=== PATIENT | female | born 1995 | race African-American/Black ===

== ENCOUNTER 2017-12-23 16:18 | Emergency (ER) | payer SELFPAY ==
[2017-12-23 16:28] VITALS: BP 111/64
--- NOTE | 2017-12-23 17:10 | ER Document Report ---
ED General - General Mode of Arrival: Ambulatory Information source: Patient TRAVEL OUTSIDE OF THE [place] IN LAST 30 DAYS: No - General Chief Complaint: Numbness of Face Stated Complaint: FACIAL/TONGUE NUMBNESS Time Seen by Provider: 12/23/17 17:02 Notes: Patient is a 22 year old female approximately 20 weeks presenting to the emergency department complaining of a headache and left sided facial numbness onset 3 days ago. Patient states she woke up 3 days ago with neck pain that progressed to a global headache and she noticed the left side of her face was numb. She also noticed she could not feel when she blinked her left eye. She also mentions her tongue feeling numb and noticing a lump on the left side of her upper gumline onset yesterday that is currently resolved except for a little amount of pain in that area. Patient is G1. Patient denies any problems during her so far. ( JJ RUSH) - Related Data Allergies/Adverse Reactions: No Known Allergies Allergy (Unverified 12/23/17 16:21) Past Medical History - General Information source: Patient - Social History Smoking Status: Never Smoker Chew tobacco use (# tins/day): No Frequency of alcohol use: None Drug Abuse: None Family History: Reviewed & Not Pertinent Patient has suicidal ideation: No Patient has homicidal ideation: No Review of Systems - Review of Systems Constitutional: No symptoms reported EENT: See HPI Cardiovascular: No symptoms reported Respiratory: No symptoms reported Gastrointestinal: No symptoms reported Genitourinary: No symptoms reported Female Genitourinary: No symptoms reported Musculoskeletal: See HPI Skin: No symptoms reported Hematologic/Lymphatic: No symptoms reported Neurological/Psychological: See HPI, Headaches, Numbness -: Yes All other systems reviewed and negative Physical Exam - Vital signs Vitals: Temp Pulse Resp BP Pulse Ox 98.7 F 94 12 111/64 97 12/23/17 16:27 12/23/17 16:27 12/23/17 16:27 12/23/17 16:27 12/23/17 16:27 - Notes Notes: GENERAL: Alert, interacts well. No acute distress. HEAD: Normocephalic, atraumatic. EYES: Pupils equal, round, and reactive to light. Extraocular movements intact. Slight left lid lag with closing eyelid. Left cheek slightly weaker. Slight weakness in forehead muscles when grimacing. TMs intact, nares patent, no nasal septal hematoma. ENT: Oral mucosa moist, tongue midline. NECK: Full range of motion. Supple. Trachea midline. LUNGS: No respiratory distress. ABDOMEN: Gravid. EXTREMITIES: Moves all 4 extremities spontaneously. NEUROLOGICAL: Alert and oriented x3. Normal speech. PSYCH: Normal affect, normal mood. SKIN: Warm, dry, normal turgor. No rashes or lesions noted. 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 Counseled on eye care. Counseled on why antivirals are not helpful with a case this mild but I think she should start steroids. Discharged home. (BERHANE BENTON) - Vital Signs Vital signs: Temp Pulse Resp BP Pulse Ox 98.7 F 94 12 111/64 97 12/23/17 16:27 12/23/17 16:27 12/23/17 16:27 12/23/17 16:27 12/23/17 16:27 Discharge - Discharge Clinical Impression: Myles's palsy affecting in second trimester Condition: Stable Disposition: HOME, SELF-CARE Instructions: Myles's Palsy ([facility]), Steroid Medication Additional Instructions: Looking at the latest research antivirals will not help. Please take the steroids as directed until they are gone. If you develop a blistering rash on your face please return to the emergency department. Prescriptions: Prednisone 10 mg PO ASDIR PRN #51 tablet PRN Reason: Referrals: [facility] [Provider Group] - Follow up as needed Scribe Attestation: 12/23/17 21:00 I personally performed the services described in the documentation, reviewed and edited the documentation which was dictated to the scribe in my presence, and it accurately records my words and actions. (BERHANE BENTON) Scribe Documentation - Scribe Written by Main:: Jj Rush, Main, 12/23/2017 17:44 acting as scribe for :: Dmitry
== END 2017-12-23 17:20 | disposition home or self-care (01) ==
LOC: ER 16:18
DX: O99.355 Diseases of the nervous system complicating the puerperium (principal); G51.0 Bell's palsy; O26.892 Other specified pregnancy related conditions, second trimester; R20.0 Anesthesia of skin; R51 Headache; Z3A.20 20 weeks gestation of pregnancy
CPT/HCPCS: 99283

== ENCOUNTER 2018-03-13 21:54 | Inpatient (IN) | payer MEDICAID ==
[2018-03-13] MEDS ORDERED: LIDOCAINE 1% INJ-PF (10 MG/ML) 30 ML SDV ONE (22:38)
[2018-03-13] MEDS ORDERED: MISOPROSTOL 0.2 MG TABLET ONE (22:38)
[2018-03-13] MEDS ORDERED: RINGERS SOLUTION,LACTATED 1,000 ML IV PRN (22:38)
[2018-03-13] MEDS ORDERED: OXYTOCIN/NORMAL SALINE 0 UNIT/0 ML RTUINJ ONE (22:38)
[2018-03-13 22:42] LABS: APPEARANCE,URINE CLOUDY; BILIRUBIN,URINE NEGATIVE (NEGATIVE); COLOR,URINE YELLOW; GLUCOSE, URINE NEGATIVE (NEGATIVE); KETONES,URINE 20 mg/dL (NEGATIVE); LEUKOCYTE ESTERASE,URINE NEGATIVE (NEGATIVE); NITRITE,URINE NEGATIVE (NEGATIVE); PROTEIN,URINE NEGATIVE (NEGATIVE); URINE SPECIFIC GRAVITY 1.015
[2018-03-13] MEDS ORDERED: PENICILLIN G-K 5 MILLION UNIT VIAL IV ONE (22:43)
[2018-03-13] MEDS ORDERED: PENICILLIN G-K 5 MILLION UNIT VIAL ONE (22:52)
[2018-03-13 22:53] LABS: URINE AMPHETAMINES SCREEN NEGATIVE; URINE BARBITURATES SCREEN NEGATIVE; URINE BENZODIAZEPINES SCREEN NEGATIVE; URINE COCAINE SCREEN NEGATIVE; URINE MARIJUANA (THC) SCREEN NEGATIVE; URINE METHADONE SCREEN NEGATIVE; URINE PHENCYCLIDINE SCREEN NEGATIVE
[2018-03-13 23:05] LABS: ABSOLUTE LYMPHOCYTES (AUTO) 2.2 10^3/uL (0.5-4.7); ABSOLUTE MONOCYTES (AUTO) 1.5 10^3/uL (0.1-1.4); ABSOLUTE NEUT (AUTO) 14.2 10^3/uL (1.7-8.2); BASOPHILS % (AUTO) 0.1 % (0-2); EOSINOPHILS % (AUTO) 0.1 % (0-6); HEMATOCRIT 29.9 % (36.0-47.0); HEMOGLOBIN 8.8 g/dL (12.0-15.5); LYMPHOCYTES % (AUTO) 12.1 % (13-45); MEAN CORPUSCULAR HEMOGLOBIN 18.1 pg (27.0-33.4); MEAN CORPUSCULAR HGB CONC 29.6 g/dL (32.0-36.0); MONOCYTES % (AUTO) 8.5 % (3-13); PLATELET COUNT 251 10^3/uL (150-450); RED BLOOD COUNT 4.88 10^6/uL (3.72-5.28); SEGMENTED NEUTROPHILS % (AUTO) 79.2 % (42-78); TOTAL CELLS COUNTED % (AUTO) 100 %; WHITE BLOOD COUNT 17.9 10^3/uL (4.0-10.5)
[2018-03-13 23:08] LABS: MEAN CORPUSCULAR VOLUME 61 fl (80-97)
[2018-03-13 23:29] LABS: ANISOCYTOSIS 3+; HYPOCHROMASIA 2+; PLATELET COMMENT ADEQUATE; POLYCHROMASIA 2+
[2018-03-13] MEDS ORDERED: EPHEDRINE SULFATE INJ 50 MG/1 ML AMPULE ONE (23:41)
[2018-03-13] MEDS ORDERED: BUPIVACAINE HCL 0.5 % INJ/PF 30 ML SDV ONE (23:42)
[2018-03-13] MEDS ORDERED: FENTANYL/BUPIVACAINE/NS/PF 300 MCG/150 ML RTUINJ EPI ONE (23:42)
[2018-03-14] MEDS ORDERED: PENICILLIN G-K 5 MILLION UNIT VIAL ONE (05:45)
[2018-03-14] MEDS: PENICILLIN G-K 5 MILLION UNIT VIAL IV SCH ×3 (05:50→23:17)
--- NOTE | 2018-03-14 06:13 | Admission Physical ---
Datetime Report Generated by CPN: 03/14/2018 06:13 CURRENT ADMISSION Chief Complaint: Uterine Contractions Indication for Induction: Not Applicable Admit Impression : , Intrauterine Admit Plan: Admit to Unit; Initiate Labor Protocol Admit Plan- Other: breech presentation ALLERGIES Medication Allergies: No Medication Allergies: No Known Allergies (03/14/2018) Latex: No Latex Allergies OBSTETRICAL HISTORY EDC: 04/24/2018 00:00 : 1 Para: 0 Term: 0 : 0 SAB: 0 IAB: 0 Ectopic: 0 Livin Cesareans: 0 VBACs: 0 Multiple Births: 0 Gestational Diabetes: No Rh Sensitization: No Incompetent Cervix: No ANTHONY: No Infertility: No ART Treatment: No Uterine Anomaly: No IUGR: No Hx Previous C/S: No Macrosomia: No Hx Loss/Stillborn: No PIH: No Hx : No Placenta Previa/Abruption: No Depression/PP Depression: No PTL/PROM: No Post Hemorrhage: No Current Procedures: Ultrasound; NST Obstetrical History Comments: G1- current, abnormal quad screen (Annotations: Data stored by [facility] on behalf of user) SEE RECORDS Alcohol: No Marijuana : No Cocaine: No Other Illicit Drugs: No Cigarettes: Never Smoker. [id number] MEDICAL HISTORY Diabetes: No Blood Transfusion: No Pulmonary Disease (Asthma, TB): No Breast Disease: No Hypertension: No Industrial Rehabilitation Consultant Surgery: No Heart Disease: No Hosp/Surgery: No Autoimmune Disorder: No Anesthetic Complications: No Kidney Disease: No Abnormal Pap Smear: No Neuro/Epilepsy: No Psychiatric Disorders: No Other Medical Diseases: No Hepatitis/Liver Disease: No Significant Family History: No Varicosities/Phlebitis: No Trauma/Violence : No Thyroid Dysfunction: No INFECTIOUS HISTORY Gonorrhea: No Genital Herpes: No Chlamydia: No Tuberculosis: No Syphilis: No Hepatitis: No HIV/AIDS Exposure: No Rash or Viral Illness: No HPV: No PHYSICAL EXAM General: Normal HEENT: Normal Neurologic: Normal Thyroid: Normal Heart: Normal Lungs: Normal Breast: Normal Back: Normal Abdomen: Normal Genitourinary Exam: Normal Extremities: Normal DTRs: Normal Pelvic Type: Adequate Vital Signs: Reviewed VAGINAL EXAM Dilatation: 4 Effacement: 100 Station: -1 MEMBRANES Pooling: Negative Membranes: Intact FETUS A EGA: 34.1 Monitoring: External US FHR- Baseline: 140 Variability: Moderate 6-25bpm Accelerations: 15X15 Decelerations: None FHR Category: Category I Estimated Weight (gm): 2500 Presentation: Breech Admit Comment: will continue to monitor for advancing dilation or ROM. If labor proceeds or ROM occurs then will proceed to OR for c/section. PLANS FOR LABOR AND DELIVERY Labor and Delivery: None Pain Management: Epidural Feeding Preference: Breast Benefit of Breast Feed Discussed: Yes Circumcision: Yes INFORMED CONSENT Signature: with User ID: [email or web address]
[2018-03-14] MEDS ORDERED: CITRIC ACID/SODIUM CITRATE ORAL SOLN 15 ML UDCUP ONE (06:28)
[2018-03-14] MEDS ORDERED: CEFAZOLIN 1 GM/D5W RTU 1 GM/50 ML RTUPB IV ONE (06:28)
[2018-03-14] MEDS ORDERED: LIDOCAINE 2% INJ-PF (20 MG/ML) 10 ML AMPUL ONE (06:33)
[2018-03-14] MEDS ORDERED: OXYTOCIN 10 UNIT/ML VIAL ONE (06:54)
[2018-03-14] MEDS ORDERED: MIDAZOLAM 2 MG/2 ML INJ ONE (06:54)
[2018-03-14] MEDS ORDERED: PROPOFOL INJ 200 MG/20 ML VIAL IV ONE (06:54)
[2018-03-14] MEDS ORDERED: EPHEDRINE SULFATE INJ 50 MG/1 ML AMPULE ONE (06:54)
[2018-03-14] MEDS ORDERED: FENTANYL CITRATE INJ/PF 100 MCG/2 ML AMPUL ONE ×2 (06:54→08:36)
[2018-03-14] MEDS ORDERED: FENTANYL CITRATE INJ/PF 100 MCG/2 ML AMPUL IV PRN ×3 (07:36)
[2018-03-14] MEDS ORDERED: MEPERIDINE HCL/PF INJ 25 MG/1 ML DISP.SYRIN IV PRN (07:36)
[2018-03-14] MEDS ORDERED: PROMETHAZINE HCL INJ 25 MG/1 ML VIAL IV PRN ×2 (07:36→07:58)
[2018-03-14] MEDS ORDERED: ONDANSETRON HCL INJ/PF 4 MG/2 ML SDV IV PRN (07:36)
[2018-03-14] MEDS ORDERED: DIPHENHYDRAMINE HCL 50 MG/ML VIAL IV PRN (07:36)
[2018-03-14] MEDS ORDERED: MORPHINE SULFATE 10 MG/ML INJ IV PRN (07:58)
[2018-03-14] MEDS ORDERED: OXYCODONE-ACETAMINOPHEN 5-325 MG TABLET PO PRN (07:58)
[2018-03-14] MEDS ORDERED: OXYTOCIN/NORMAL SALINE 20 UNIT/1,000 ML RTUINJ IV PRN (07:58)
[2018-03-14] MEDS ORDERED: ACETAMINOPHEN 325 MG TABLET PO PRN (07:58)
[2018-03-14] MEDS ORDERED: DIPH/PERTUSS(ACELL)/TETANUS VAC/PF 0.5 ML SYR (>=10YO) IM PRN (07:58)
[2018-03-14] MEDS ORDERED: MEASLES,MUMPS&RUBELLA VACC/PF 0.5 ML VIAL SUBCUT PRN (07:58)
[2018-03-14] MEDS ORDERED: ACETAMINOPHEN 1,000 MG/100 ML RTUPB IV PRN (07:58)
[2018-03-14] MEDS ORDERED: AMPICILLIN SOD/SULBACTAM 3 GM VIAL IV SCH ×2 (08:00→14:00)
[2018-03-14] MEDS ORDERED: ACETAMINOPHEN 1,000 MG/100 ML RTUPB IV ONE (08:14)
--- NOTE | 2018-03-14 08:24 | PDOC DELIVERY SUMMARY ---
Delivery Summary - Maternal Hx : I Hx Para: 0 Risk Factors: Labor <37 wks, Other - breech Ruptured Membranes: AROM - Delivery Presentation: Breech - Medications Type of Anesthesia:: Epidural - Delivery Personnel MD: ALMAZ AGARWAL
[2018-03-14] MEDS ORDERED: OXYTOCIN/NORMAL SALINE 20 UNIT/1,000 ML RTUINJ ONE (08:41)
[2018-03-14] MEDS ORDERED: AMPICILLIN SOD/SULBACTAM 3 GM VIAL ONE (08:58)
[2018-03-14] MEDS ORDERED: MORPHINE SULFATE 10 MG/ML INJ ONE (09:10)
[2018-03-14] MEDS: MORPHINE SULFATE 10 MG/ML INJ IV PRN ×2 (09:12→09:39)
--- NOTE | 2018-03-14 09:17 | OPERATIVE REPORT E ---
Operative Report NAME: NANO LONG : 1995 AGE: 22Y DATE OF SURGERY: 03/14/2018 ROOM: LR200 PREOPERATIVE DIAGNOSIS: INTRAUTERINE AT 34 WEEKS AND 1 DAY, LABOR, BREECH PRESENTATION. POSTOPERATIVE DIAGNOSIS: INTRAUTERINE AT 34 WEEKS AND 1 DAY, LABOR, BREECH PRESENTATION. OPERATION: Low transverse hysterotomy section. SURGEON: ALMAZ AGARWAL M.D. ANESTHESIA: Dr. Khoury with epidural. FINDINGS: Male in double footling breech presentation, Apgars 8-9. ESTIMATED BLOOD LOSS: 650 mL SPECIMENS REMOVED: Placenta. PROCEDURE: The patient was taken to the operating room, prepared and draped in normal sterile fashion in the supine position with a leftward tilt. A transverse skin incision was made with a scalpel and carried through to the underlying layer of fascia with the same scalpel. The fascia was incised in the midline and extended laterally with Mayos. The fascia was then dissected from the rectus muscle sharply with a Bovie, and the rectus muscle was divided with good visualization of the bladder and the uterus. The bladder blade was inserted and the hysterotomy was nicked with a scalpel and extended laterally with surgeon finger fracture. The 's legs were then grasped and the infant was delivered using the normal procedures. The nose and mouth were suctioned with a suction bulb. The cord was clamped and cut and the was handed off to waiting sales contractor. The cord blood was collected. The placenta was removed manually. The uterus was exteriorized and cleared of clots and debris. The hysterotomy was closed with 0 Monocryl in a running locked fashion. A 2nd layer of the same suture was used to imbricate to ensure hemostasis. The uterus was returned to the abdomen. The peritoneal cavity was cleared of clots and debris. The rectus muscle and peritoneum were reapproximated with mattress stitch of 2-0 Chromic. The fascia was closed with 0 Vicryl. The subcutaneous layer was closed with interrupted plain catgut, and the skin was closed with 4-0 Vicryl. The patient tolerated the procedure well. Sponge, lap, and needle counts were correct x2, and the patient was taken to recovery in stable condition. DICTATING PHYSICIAN: ALMAZ AGARWAL M.D. [id number] PHY#: [id number] ID: [id number] JOB#: [id number] ACCT: [id number] cc:ALMAZ AGARWAL M.D. >
[2018-03-14 09:51] LABS: EPITHELIALS (WET MOUNT) 3+ EPITHELIALS SEEN; RBCS (WET MOUNT) 4+ RBCS SEEN; T.VAGINALIS (WET MOUNT) NO TRICHOMONAS SEEN; WBCS (WET MOUNT) 2+ WBCS SEEN; YEAST (WET MOUNT) NO YEAST SEEN
[2018-03-14] MEDS: PRENATAL VITAMIN W DHA CAPSULE PO SCH (10:26)
[2018-03-14] MEDS: DOCUSATE SODIUM 100 MG CAPSULE PO SCH ×2 (10:26→17:02)
[2018-03-14] MEDS: OXYCODONE-ACETAMINOPHEN 5-325 MG TABLET PO PRN ×2 (11:08→17:30)
[2018-03-14 11:15] LABS: CHLAM PCR NOT DETECTED (NOT DETECT); GON PCR NOT DETECTED (NOT DETECT)
[2018-03-14] MEDS: IBUPROFEN 800 MG TABLET PO SCH ×4 (12:55→23:04)
[2018-03-14] MEDS: KETOROLAC TROMETHAMINE INJ/PF 30 MG/1 ML SDV IV SCH ×2 (13:58→21:30)
[2018-03-14] MEDS: AMPICILLIN SODIUM/SULBACTAM NA 3 GM in NORMAL SALINE 100 ML IV SCH ×2 (14:51→22:59)
[2018-03-14 15:05] LABS: PATH REVIEW PATHOLOGIST REVIEWED
[2018-03-14] MEDS: SIMETHICONE 80 MG TAB.CHEW PO PRN (17:30)
[2018-03-15] MEDS: OXYCODONE-ACETAMINOPHEN 5-325 MG TABLET PO PRN ×3 (04:33→22:39)
[2018-03-15] MEDS: IBUPROFEN 800 MG TABLET PO SCH ×3 (05:29→17:40)
[2018-03-15] MEDS: AMPICILLIN SODIUM/SULBACTAM NA 3 GM in NORMAL SALINE 100 ML IV SCH (06:01)
[2018-03-15] MEDS: KETOROLAC TROMETHAMINE INJ/PF 30 MG/1 ML SDV IV SCH ×3 (06:01→21:03)
[2018-03-15 06:45] LABS: HEMATOCRIT 29.4 % (36.0-47.0); HEMOGLOBIN 8.6 g/dL (12.0-15.5); MEAN CORPUSCULAR HEMOGLOBIN 18.1 pg (27.0-33.4); MEAN CORPUSCULAR HGB CONC 29.4 g/dL (32.0-36.0); MEAN CORPUSCULAR VOLUME 62 fl (80-97); PLATELET COUNT 222 10^3/uL (150-450); RED BLOOD COUNT 4.77 10^6/uL (3.72-5.28); RED CELL DISTRIBUTION WIDTH 20.7 % (11.5-14.0); WHITE BLOOD COUNT 21.3 10^3/uL (4.0-10.5)
[2018-03-15 08:38] LABS: HEPATITIS C VIRUS AB <0.1 s/co ratio (0.0-0.9)
--- NOTE | 2018-03-15 08:57 | PDOC PROGRESS REPORT ---
Subjective-OB Progress Note for:: 03/15/18 Subjective: Pt resting in bed. She reports light bleeding, reg diet and voiding without difficulty. Pain is controlled and she is ambulatory. Baby in NICU. Physical Exam (OB) Vital Signs: Temp Pulse Resp BP Pulse Ox 98.0 F 80 16 105/65 95 03/15/18 08:06 03/15/18 08:06 03/15/18 08:06 03/15/18 08:06 03/15/18 08:06 Intake & Output 03/14/18 03/15/18 03/16/18 06:59 06:59 06:59 Intake Total 2950 Output Total 1900 Balance 1050 - Dressing Removed: No - Opsite CD&I Incision: Dressing, Well Approximated - Abdomen Description: Tender, Soft, Round Hernia Present: No Fundal Description: Firm, Midline Fundal Height: u/u - u/2 Objective-Diagnostic Laboratory: 03/15/18 06:18 03/15/18 06:18 WBC 21.3 H RBC 4.77 Hgb 8.6 L Hct 29.4 L MCV 62 L MCH 18.1 L MCHC 29.4 L RDW 20.7 H Plt Count 222 Assessment and Plan(PN) - Assessment and Plan (1) Iron deficiency anemia during Is this a current diagnosis for this admission?: Yes (2) Breech presentation delivered Is this a current diagnosis for this admission?: Yes (3) labor in third trimester with delivery Qualifiers: Fetus number: single or unspecified fetus Qualified Code(s): O60.14X0 - labor third trimester with delivery third trimester, not applicable or unspecified Is this a current diagnosis for this admission?: Yes (4) Status post primary low transverse section Is this a current diagnosis for this admission?: Yes Plan:: repeat CBC in AM for elevated WBC - Time Spent with Patient Time with patient: Less than 15 minutes Medications reviewed and adjusted accordingly: Yes - Disposition Anticipated Discharge: Home Within: within 48 hours
[2018-03-15] MEDS: DOCUSATE SODIUM 100 MG CAPSULE PO SCH ×2 (10:44→17:41)
[2018-03-15] MEDS: PRENATAL VITAMIN W DHA CAPSULE PO SCH (10:44)
[2018-03-16] MEDS: IBUPROFEN 800 MG TABLET PO SCH ×5 (01:33→23:44)
[2018-03-16] MEDS: KETOROLAC TROMETHAMINE INJ/PF 30 MG/1 ML SDV IV SCH (07:19)
[2018-03-16 08:04] LABS: MEAN CORPUSCULAR HEMOGLOBIN 17.9 pg (27.0-33.4); MEAN CORPUSCULAR HGB CONC 29.2 g/dL (32.0-36.0); MEAN CORPUSCULAR VOLUME 61 fl (80-97); PLATELET COUNT 267 10^3/uL (150-450); RED BLOOD COUNT 4.41 10^6/uL (3.72-5.28); RED CELL DISTRIBUTION WIDTH 20.4 % (11.5-14.0); WHITE BLOOD COUNT 12.4 10^3/uL (4.0-10.5)
[2018-03-16 08:13] LABS: HEMOGLOBIN 7.9 g/dL (12.0-15.5)
--- NOTE | 2018-03-16 08:45 | PDOC PROGRESS REPORT ---
Subjective-OB Progress Note for:: 03/16/18 Subjective: Doing well, no c/o, hx of low iron and iron infusions, does not want blood, feels dizzy when she takes pain medication Physical Exam (OB) Vital Signs: Temp Pulse Resp BP Pulse Ox 98.9 F 102 H 18 112/78 98 03/16/18 04:00 03/16/18 04:00 03/16/18 04:00 03/16/18 04:00 03/16/18 04:00 Intake & Output 03/15/18 03/16/18 03/17/18 06:59 06:59 06:59 Intake Total 2950 700 Output Total 1900 Balance 1050 700 - PIH/Pre-Eclampsia Clonus: Negative Headache: Absent Epigastric Pain: No Visual Changes: No - Dressing Removed: No - opsite noted to lower abdomen Incision: Dressing Closure Type: Sutures - Lochia Lochia Amount: Small 10-25 ml Lochia Color: Rubra/Red - Abdomen Description: Tender, Soft, Round Hernia Present: No Fundal Description: Firm, Midline Fundal Height: u/u - u/2 Objective-Diagnostic Laboratory: 03/16/18 06:17 03/16/18 06:17 WBC 12.4 H RBC 4.41 Hgb 7.9 L Hct 27.0 L MCV 61 L MCH 17.9 L MCHC 29.2 L RDW 20.4 H Plt Count 267 Seg Neutrophils % Not Reportable Lymphocytes % Not Reportable Monocytes % Not Reportable Eosinophils % Not Reportable Basophils % Not Reportable Absolute Neutrophils Not Reportable Absolute Lymphocytes Not Reportable Absolute Monocytes Not Reportable Absolute Eosinophils Not Reportable Absolute Basophils Not Reportable Assessment and Plan(PN) - Assessment and Plan (1) Iron deficiency anemia during Is this a current diagnosis for this admission?: Yes (2) Status post primary low transverse section Is this a current diagnosis for this admission?: Yes (3) Breech presentation delivered Is this a current diagnosis for this admission?: Yes (4) labor in third trimester with delivery Qualifiers: Fetus number: single or unspecified fetus Qualified Code(s): O60.14X0 - labor third trimester with delivery third trimester, not applicable or unspecified Is this a current diagnosis for this admission?: Yes - Time Spent with Patient Time with patient: Less than 15 minutes Medications reviewed and adjusted accordingly: Yes - Disposition Anticipated Discharge: Home Within: within 24 hours
[2018-03-16 08:48] LABS: ABSOLUTE LYMPHOCYTES# (MANUAL) 1.4 10^3/uL (0.5-4.7); ABSOLUTE MONOCYTES # (MANUAL) 0.6 10^3/uL (0.1-1.4); ABSOLUTE NEUTROPHILS# (MANUAL) 10.4 10^3/uL (1.7-8.2); BASOPHILS % (MANUAL) 0 % (0-2); EOSINOPHILS % (MANUAL) 0 % (0-6); LYMPHOCYTES % (MANUAL) 7 % (13-45); MONOCYTES % (MANUAL) 5 % (3-13); SEGMENTED NEUTROPHILS % (MAN) 84 % (42-78); TOTAL CELLS COUNTED 100
[2018-03-16 08:51] LABS: ANISOCYTOSIS 3+; HYPOCHROMASIA 2+; OVALOCYTES SLIGHT; POIKILOCYTOSIS 2+; POLYCHROMASIA 2+; SCHISTOCYTES SLIGHT; TARGET CELLS 1+; TEAR DROP CELLS 2+; TOXIC VACUOLATION PRESENT
[2018-03-16 08:52] LABS: PLATELET COMMENT ADEQUATE
[2018-03-16 08:53] LABS: TOXIC GRANULATION SLIGHT
[2018-03-16] MEDS: PRENATAL VITAMIN W DHA CAPSULE PO SCH (09:06)
[2018-03-16] MEDS: OXYCODONE-ACETAMINOPHEN 5-325 MG TABLET PO PRN ×2 (09:06→20:00)
[2018-03-16] MEDS: DOCUSATE SODIUM 100 MG CAPSULE PO SCH ×2 (09:06→17:11)
--- NOTE | 2018-03-16 14:21 | Delivery Summary ---
Del Sum A-C Datetime Report Generated by CPN: 03/16/2018 14:21 DELIVERY PERSONNEL DELIVERY PERSONNEL: [id number] Delivery Doctor:: Steffi Yeager MD Delivery Doctor:: Steffi Yeager MD Anesthesiologist:: Ruddy Khoury MD Anesthesiologist:: Ruddy Khoury MD REGISTER OF WILLS:: Alexandria Vega CRNA REGISTER OF WILLS:: Alexandria Vega CRNA Labor and Delivery Nurse:: Laurita Phillip RN Form Tamper Operator:: Laurita Phillip RN Nursery Nurse:: Rosy Crowe RN Nursery Nurse:: Airam Cedeño RN Candlemaker/WEDGER MACHINE: Yanely Hinkle, ST Candlemaker/WEDGER MACHINE: Yanely Hinkle, ST Candlemaker/WEDGER MACHINE: Cate Santos CST Candlemaker/WEDGER MACHINE: Cate Santos CST Additional Personnel: : JESSICA Cabral MATERNAL INFORMATION Delivery Anesthesia: Epidural Medications After Delivery: Pitocin Drip 20 Units/1000ml NSS Maternal Complications: Other Complication Details: labor LABOR SUMMARY EDC: 04/24/2018 00:00 No. Babies in Womb: 1 Attempted: No Labor Anesthesia: Epidural LABOR INFORMATION Reason for Induction: Not Applicable Onset of Labor: 03/14/2018 00:26 Group B Beta Strep: 1 NO GROUP B STREPTOCOCCUS RECOVERED Group B Beta Strep: Unknown Antibiotics # of Doses: 2 Antibiotics Time of Last Dose: 0550 Name of Antibiotic Given: PCN STAGES OF LABOR Stage 3 hr: 0 Stage 3 min: 1 Total Time in Labor hr: 7 Total Time in Labor min: 1 VAGINAL DELIVERY Episiotomy: None Laceration #1: None Laceration Extension #1: N/A Sponge Count Correct: N/A CSECTION DELIVERY Primary Indication: Breech Presentation Secondary Indication: N/A CSection Urgency: Non-Scheduled CSection Incidence: Primary Labor: Labor Elective: Nonelective CSection Incision: Lower Uterine Transverse BABY A INFORMATION Infant Delivery Date/Time: 03/14/2018 07:26 Method of Delivery: Born in Route : No : N/A Forceps: N/A Vacuum Extraction: N/A Shoulder Dystocia : No PRESENTATION/POSITION BABY A Presentation: Unable to Assess Cephalic Presentation: N/A Breech Presentation: Single Footling PLACENTA INFORMATION BABY A Placenta Delivery Time : 03/14/2018 07:27 Placenta Method of Delivery: Manual Removal Placenta Status: Delivered SCORES BABY A Heart Rate 1 min: >100 bpm Resp Effort 1 min: Slow, Irregular Reflex Irritability 1 min: Grimace Muscle Tone 1 min: Active Motion Color 1 min: Blue/Pale Resuscitation Effort 1 min: Tactile Stimulation SCORE 1 MIN: 6 Heart Rate 5 min: >100 bpm Resp Effort 5 min: Slow, Irregular Reflex Irritability 5 min: Grimace Muscle Tone 5 min: Some Flexion of Extremities Color 5 min: Body [place], Extremities Blue Resuscitation Effort 5 min: Tactile Stimulation; Oxygen; PPV/NCPAP SCORE 5 MIN: 6 Heart Rate 10 min: >100 bpm Resp Effort 10 min: Slow, Irregular Reflex Irritability 10 min: Cough or Sneeze or Pulls Away Muscle Tone 10 min: Active Motion Color 10 min: Body [place], Extremities Blue Resuscitation Effort 10 min: Oxygen; PPV/NCPAP SCORE 10 MIN: 8 INFORMATION BABY A Gestational Age at Delivery: 34.1 Gestational Status: Late - 34- 36.6 Weeks Infant Outcome : Liveborn Infant Condition : Stable Sex: Male IDENTIFICATION BABY A Infant Verification Date/Time: 03/14/2018 07:33 ID Band Number: [id number] Mother's Name Verified: Yes Infant RN Verifying : J, RN and R.Davidson, RN WEIGHT/LENGTH BABY A Infant Birthweight (gm): 2193 Infant Weight (lb): 4 Infant Weight (oz): 13 Length (in): 17.75 Length (cm): 45.09 CORD INFORMATION BABY A No. Cord Vessels: 3 Nuchal Cord : Around Neck x2, Loose Cord Blood Taken: Yes-For Storage (Mom's Blood type +) Infant Suction: Mouth ASSESSMENT BABY A Skin to Skin: No
[2018-03-16] MEDS: SIMETHICONE 80 MG TAB.CHEW PO PRN (20:03)
[2018-03-17] MEDS: KETOROLAC TROMETHAMINE INJ/PF 30 MG/1 ML SDV IV SCH (00:08)
[2018-03-17] MEDS: IBUPROFEN 800 MG TABLET PO SCH ×2 (05:21→12:01)
[2018-03-17] MEDS: OXYCODONE-ACETAMINOPHEN 5-325 MG TABLET PO PRN (07:55)
[2018-03-17 08:48] VITALS: BP 111/69
[2018-03-17] MEDS: DOCUSATE SODIUM 100 MG CAPSULE PO SCH (10:07)
[2018-03-17] MEDS: PRENATAL VITAMIN W DHA CAPSULE PO SCH (10:07)
--- NOTE | 2018-03-17 10:25 | PDOC PROGRESS REPORT ---
Subjective-OB Progress Note for:: 03/17/18 Subjective: Ready for discharge. Physical Exam (OB) Vital Signs: Temp Pulse Resp BP Pulse Ox 97.6 F 66 15 111/69 97 03/17/18 08:00 03/17/18 08:00 03/17/18 08:00 03/17/18 08:00 03/17/18 08:00 Intake & Output 03/16/18 03/17/18 03/18/18 06:59 06:59 06:59 Intake Total 700 2675 Balance 700 2675 - PIH/Pre-Eclampsia Clonus: Negative Headache: Absent Epigastric Pain: No Visual Changes: No - Dressing Removed: No - opsite noted Incision: Dressing Closure Type: Sutures - Lochia Lochia Amount: Small 10-25 ml Lochia Color: Rubra/Red - Abdomen Description: Tender, Soft, Round Hernia Present: No Bowel Sounds: Normoactive Flatus Presence: Present Stool: No Fundal Description: Firm, Midline Fundal Height: u/3 - u/4 Objective-Diagnostic Laboratory: 03/16/18 06:17 03/14/18 09:20 Vaginal/Anorectal Group B Streptococcus Culture - Final NO GROUP B STREPTOCOCCUS RECOVERED Assessment and Plan(PN) - Time Spent with Patient Medications reviewed and adjusted accordingly: Yes - Disposition Anticipated Discharge: Home
--- NOTE | 2018-03-17 10:34 | PDOC DISCHARGE SUMMARY ---
Final Diagnosis Discharge Date: 03/17/18 - Final Diagnosis (1) Breech presentation delivered Is this a current diagnosis for this admission?: Yes (2) Iron deficiency anemia during Is this a current diagnosis for this admission?: Yes (3) labor in third trimester with delivery Is this a current diagnosis for this admission?: Yes (4) Status post primary low transverse section Is this a current diagnosis for this admission?: Yes Discharge Data - Discharge Medication Prescriptions: Oxycodone HCl/Acetaminophen [Percocet 5-325 mg Tablet] 1 tab PO Q4HP PRN #20 tablet PRN Reason: Docusate Sodium [Colace 100 mg Capsule] 100 mg PO BID #30 capsule Ibuprofen [Motrin 800 mg Tablet] 800 mg PO Q6 #30 tablet Home Medications: Docusate Sodium [Colace 100 mg Capsule] 100 mg PO BID #30 capsule 03/17/18 Ibuprofen [Motrin 800 mg Tablet] 800 mg PO Q6 #30 tablet 03/17/18 Oxycodone HCl/Acetaminophen [Percocet 5-325 mg Tablet] 1 tab PO Q4HP PRN #20 tablet 03/17/18 Vit/Dha [ Multi + Dha Capsule] 1 cap PO DAILY capsule 03/17/18 Gestational Age: 34.1 wks Reason(s) for Admission: Onset of Labor, Ceasarean Section-Primary, Status Procedures: Ultrasound Intrapartum Procedure(s): : Low Cervical, Transverse - Data Baby 1 Male at 1 minute: 6 at 5 minutes: 6 at 10 minutes: 8 Weight: 2.183 kg Home with Mother: No Complications: Yes - Prematurity - Diagnosis Test Laboratory: Temp Pulse Resp BP Pulse Ox 97.6 F 66 15 111/69 97 03/17/18 08:00 03/17/18 08:00 03/17/18 08:00 03/17/18 08:00 03/17/18 08:00 03/13/18 03/13/18 03/15/18 22:15 22:48 06:18 RBC 4.88 4.77 Hgb 8.8 L 8.6 L Hct 29.9 L 29.4 L Urine Opiates Screen NEGATIVE 03/16/18 06:17 RBC 4.41 Hgb 7.9 L Hct 27.0 L Urine Opiates Screen - Discharge information/Instructions Discharge Activity: Activity As Tolerated, Balance Activity w/Rest, No Lifting Over 10 Pounds, No Lifting/Push/Pulling, Pelvic Rest, Slowly Increase Activity, No tub bath Discharge Diet: Regular Disposition: HOME, SELF-CARE Follow up with: [facility] in: 1, Weeks
== END 2018-03-17 15:45 | disposition home or self-care (01) | DRG 786 ==
LOC: LC 21:54 → LR 22:39 → 2S 03-14 10:18
PROVIDERS: ADMIT Obstetrics & Gynecology; ATTEND Obstetrics & Gynecology
PROC: 10D00Z1 Extraction of Products of Conception, Low, Open Approach (ICD-10-PCS; principal; 2018-03-14)
PROC: 4A1HXCZ Monitoring of Products of Conception, Cardiac Rate, External Approach (ICD-10-PCS; 2018-03-14)
DX: O32.8XX0 Maternal care for other malpresentation of fetus, not applicable or unspecified (principal); O60.14X0 Preterm labor third trimester with preterm delivery third trimester, not applicable or unspecified; O69.81X0 Labor and delivery complicated by cord around neck, without compression, not applicable or unspecified; O99.02 Anemia complicating childbirth; D50.9 Iron deficiency anemia, unspecified; Z3A.34 34 weeks gestation of pregnancy; Z37.0 Single live birth
CPT/HCPCS: 1961; 36415; 80307; 81001; 85025; 85027; 86592; 86803; 86804; 86850; 86900; 86901; 87081; 87210; 87491; 87591; 88307; 94799; J0131; J0295; J0690; J1885; J2250; J2270; J2540; J2590; J2704; J3010; J3490; J7120

== ENCOUNTER 2019-01-31 21:20 | Emergency (ER) | payer MEDICAID ==
--- NOTE | 2019-01-31 21:41 | ER Document Report ---
ED Medical Screen (RME) - General Chief Complaint: Vaginal Bleeding Stated Complaint: VAGINAL BLEEDING Time Seen by Provider: 01/31/19 21:36 Mode of Arrival: Ambulatory Information source: Patient Notes: 31-year-old female presents emergency department with reports that she has been on her menses since January 12. She reports is been heavy then light. Reports clots. Reports some abdominal cramping. Also reports backaches and headaches. Reports she is never had this before denies other symptoms such as fever vomiting diarrhea. She is not on control. Has not followed up with her HIDE TANNER. I have greeted and performed a rapid initial assessment of this patient. A comprehensive ED assessment and evaluation of the patient, analysis of test results and completion of the medical decision making process will be conducted by additional ED providers. Dictation of this chart was performed using voice recognition software; therefore, there may be some unintended grammatical errors. TRAVEL OUTSIDE OF THE [place] IN LAST 30 DAYS: No - Related Data Allergies/Adverse Reactions: No Known Allergies Allergy (Verified 01/31/19 21:35) Past Medical History Renal/ Medical History: Denies: Hx Peritoneal Dialysis Physical Exam - Vital signs Vitals: Temp Pulse Resp BP Pulse Ox 98.6 F 88 20 145/72 H 95 01/31/19 21:35 01/31/19 21:35 01/31/19 21:35 01/31/19 21:35 01/31/19 21:35 Course - Vital Signs Vital signs: Temp Pulse Resp BP Pulse Ox 98.6 F 88 20 145/72 H 95 01/31/19 21:35 01/31/19 21:35 01/31/19 21:35 01/31/19 21:35 01/31/19 21:35
[2019-01-31 22:24] LABS: APPEARANCE,URINE CLOUDY; BILIRUBIN,URINE NEGATIVE (NEGATIVE); COLOR,URINE YELLOW; GLUCOSE, URINE NEGATIVE (NEGATIVE); KETONES,URINE NEGATIVE (NEGATIVE); LEUKOCYTE ESTERASE,URINE NEGATIVE (NEGATIVE); NITRITE,URINE NEGATIVE (NEGATIVE); PROTEIN,URINE 30 mg/dL (NEGATIVE); URINE SPECIFIC GRAVITY 1.025
[2019-01-31 22:29] LABS: HEMOGLOBIN 9.7 g/dL (12.0-15.5); MEAN CORPUSCULAR HEMOGLOBIN 17.7 pg (27.0-33.4); MEAN CORPUSCULAR HGB CONC 29.6 g/dL (32.0-36.0); PLATELET COUNT 335 10^3/uL (150-450); RED BLOOD COUNT 5.49 10^6/uL (3.72-5.28); RED CELL DISTRIBUTION WIDTH 22.7 % (11.5-14.0); WHITE BLOOD COUNT 4.6 10^3/uL (4.0-10.5)
[2019-01-31 22:42] LABS: ALBUMIN 4.1 g/dL (3.5-5.0); ALKALINE PHOSPHATASE 35 U/L (38-126); ANION GAP 10 (5-19); ASPARTATE AMINO TRANSFERASE 17 U/L (14-36); BILIRUBIN,DIRECT 0.3 mg/dL (0.0-0.4); BILIRUBIN,TOTAL 1.3 mg/dL (0.2-1.3); BLOOD UREA NITROGEN 13 mg/dL (7-20); CALCIUM 9.3 mg/dL (8.4-10.2); CARBON DIOXIDE 23 mmol/L (22-30); CHLORIDE 110 mmol/L (98-107); GLUCOSE 87 mg/dL (75-110); POTASSIUM 3.9 mmol/L (3.6-5.0); TOTAL PROTEIN 6.9 g/dL (6.3-8.2)
--- NOTE | 2019-01-31 22:47 | RADIOLOGY REPORT (SQ) ---
EXAM DESCRIPTION: US PELVIS TRANSVAGINAL COMPLETED DATE/TME: 01/31/2019 21:39 CLINICAL HISTORY: 23 years, Female, vaginal bleeding prolonged COMPARISON: None. TECHNIQUE: Axial 2-D grayscale images of the pelvis were acquired. Doppler was utilized. LIMITATIONS: None. FINDINGS: Uterus measures 7.9 x 4.2 x 3.7 cm in size. Endometrial stripe thickness is 4 mm, within normal limits for a premenopausal female. Cervix is closed, measuring 3.4 cm in length. A small amount of fluid is noted within the and endocervical canal. Right ovary measures 4.2 x 2.6 x 2.3 cm in size. It contains a few simple cysts, the largest of which measures 2.1 x 1.4 x 1.9 cm in size. These are considered benign for which no additional follow-up needed. Otherwise, the right ovary demonstrates normal low resistance arterial waveforms/venous flow. Left ovary measures 2.7 x 2.0 x 1.4 cm in size. It contains a few normal-appearing follicles as well as demonstrates normal low resistance arterial waveforms/venous flow. IMPRESSION: No acute sonographic finding. copyright 2010 [employer]- All Rights Reserved
[2019-01-31 23:00] LABS: ABSOLUTE LYMPHOCYTES# (MANUAL) 2.5 10^3/uL (0.5-4.7); ABSOLUTE MONOCYTES # (MANUAL) 0.2 10^3/uL (0.1-1.4); BASOPHILS % (MANUAL) 2 % (0-2); EOSINOPHILS % (MANUAL) 0 % (0-6); LYMPHOCYTES % (MANUAL) 53 % (13-45); MONOCYTES % (MANUAL) 5 % (3-13); SEGMENTED NEUTROPHILS % (MAN) 38 % (42-78); TOTAL CELLS COUNTED 100
[2019-01-31 23:01] LABS: HYPOCHROMASIA 1+
[2019-01-31 23:02] LABS: ANISOCYTOSIS 3+; PLATELET COMMENT ADEQUATE; TARGET CELLS 1+; TEAR DROP CELLS 1+
[2019-01-31 23:03] LABS: MEAN CORPUSCULAR VOLUME 60 fl (80-97)
--- NOTE | 2019-02-01 00:25 | ER Document Report ---
HPI - HPI Time Seen by Provider: 01/31/19 21:36 Pain Level: 5 Notes: 31-year-old female presents emergency department with reports that she has been on her menses since January 12. She reports is been heavy then light. Reports clots. Reports some abdominal cramping. Also reports backaches and headaches. Reports she is never had this before denies other symptoms such as fever vomiting diarrhea. She is not on control. Has not followed up with her [employer]. - REPRODUCTIVE LMP: JAN 12 Past Medical History - General Information source: Patient - Social History Smoking Status: Former Smoker Frequency of alcohol use: None Drug Abuse: None Family History: Reviewed & Not Pertinent Patient has suicidal ideation: No Patient has homicidal ideation: No - Medical History Medical History: Negative Renal/ Medical History: Denies: Hx Peritoneal Dialysis Surgical Hx: Negative - Immunizations Immunizations up to date: Yes Vertical Provider Document - CONSTITUTIONAL Notes: PHYSICAL EXAMINATION: GENERAL: Well-appearing, well-nourished and in no acute distress. HEAD: Atraumatic, normocephalic. EYES: Pupils equal round and reactive to light, extraocular movements intact, conjunctiva are normal. ENT: Nares patent, oropharynx clear without exudates. Moist mucous membranes. NECK: Normal range of motion, supple without lymphadenopathy LUNGS: Breath sounds clear to auscultation bilaterally and equal. No wheezes rales or rhonchi. HEART: Regular rate and rhythm without murmurs ABDOMEN: Soft, nontender, nondistended abdomen. No guarding, no rebound. No masses appreciated. Female : declined pelvic exam Musculoskeletal: Normal range of motion, no pitting or edema. No cyanosis. NEUROLOGICAL: Cranial nerves grossly intact. Normal speech, normal gait. Normal sensory, motor exams PSYCH: Normal mood, normal affect. SKIN: Warm, Dry, normal turgor, no rashes or lesions noted. - INFECTION CONTROL TRAVEL OUTSIDE OF THE [place] IN LAST 30 DAYS: No Course - Re-evaluation Re-evalutation: Laboratory 01/31/19 01/31/19 01/31/19 21:55 21:55 21:55 WBC 4.6 RBC 5.49 H Hgb 9.7 L Hct 33.0 L MCV 60 L MCH 17.7 L MCHC 29.6 L RDW 22.7 H Plt Count 335 Lymph % (Auto) Not Reportable [place] % (Auto) Not Reportable Eos % (Auto) Not Reportable Baso % (Auto) Not Reportable Absolute Neuts (auto) Not Reportable Absolute Lymphs (auto) Not Reportable Absolute Monos (auto) Not Reportable Absolute Eos (auto) Not Reportable Absolute Basos (auto) Not Reportable Total Counted 100 Seg Neutrophils % Not Reportable Seg Neuts % (Manual) 38 L Lymphocytes % (Manual) 53 H Atypical Lymphs % 2 Monocytes % (Manual) 5 Eosinophils % (Manual) 0 Basophils % (Manual) 2 Abs Neuts (Manual) 1.7 Abs Lymphs (Manual) 2.5 Abs Monocytes (Manual) 0.2 Absolute Eos (Manual) 0.0 Abs Basophils (Manual) 0.1 Platelet Comment ADEQUATE Hypochromasia 1+ Anisocytosis 3+ Microcytosis 3+ Target Cells 1+ Tear Drop Cells 1+ Sodium 143.2 Potassium 3.9 Chloride 110 H Carbon Dioxide 23 Anion Gap 10 BUN 13 Creatinine 0.61 Est GFR ( Amer) > 60 Est GFR (MDRD) Non-Af > 60 Glucose 87 Calcium 9.3 Total Bilirubin 1.3 Direct Bilirubin 0.3 Neonat Total Bilirubin Not Reportable Neonat Direct Bilirubin Not Reportable Neonat Indirect Bili Not Reportable AST 17 ALT 11 Alkaline Phosphatase 35 L Total Protein 6.9 Albumin 4.1 Urine Color YELLOW Urine Appearance CLOUDY Urine pH 8.0 Ur Specific [place] 1.025 Urine Protein 30 H Urine Glucose (UA) NEGATIVE Urine Ketones NEGATIVE Urine Blood MODERATE H Urine Nitrite NEGATIVE Urine Bilirubin NEGATIVE Urine Urobilinogen 4.0 H Ur Leukocyte Esterase NEGATIVE Urine WBC (Auto) 24 Urine RBC (Auto) 118 U Hyaline Cast (Auto) 5 Urine Bacteria (Auto) 1+ Squamous Epi Cells Auto 2 Urine Mucus (Auto) MANY Urine Ascorbic Acid NEGATIVE Urine HCG, Qual NEGATIVE Slides for Path Review PATHOLOGIST REVIEWED Transvaginal US 01/31/19 21:39 IMPRESSION: No acute sonographic finding. copyright 2010 [employer]- All Rights Reserved Patient declined pelvic exam, states she is only bleeding through approximately 1 pad every 4 hours. H&H is within normal limits. No indication for further work-up at this time. Patient given ED return precautions. Patient will follow-up with paper pattern inspector. The patient's emergency department workup and current diagnosis were explained to the patient and or family. Follow-up instructions were provided. Medications if prescribed were discussed. Instructions for when to return to the emergency department including specific worrisome symptoms were discussed with the patient and/or family. - Vital Signs Vital signs: Temp Pulse Resp BP Pulse Ox 98.6 F 88 20 145/72 H 95 01/31/19 21:35 01/31/19 21:35 01/31/19 21:35 01/31/19 21:35 01/31/19 21:35 - Laboratory Result Diagrams: 01/31/19 21:55 01/31/19 21:55 Laboratory results interpreted by me: 01/31/19 01/31/19 01/31/19 21:55 21:55 21:55 RBC 5.49 H Hgb 9.7 L Hct 33.0 L MCV 60 L MCH 17.7 L MCHC 29.6 L RDW 22.7 H Seg Neuts % (Manual) 38 L Lymphocytes % (Manual) 53 H Chloride 110 H Alkaline Phosphatase 35 L Urine Protein 30 H Urine Blood MODERATE H Urine Urobilinogen 4.0 H Discharge - Discharge Clinical Impression: Vaginal bleeding Condition: Stable Disposition: HOME, SELF-CARE Additional Instructions: You were seen today for dysfunctional uterine bleeding. This is when you have vaginal bleeding and abdominal cramping off of your normal menstrual cycle. You need to follow-up with [facility] [employer] IN[employer]MENT ANALYST or your primary care physician the next 1-3 days. Return immediately if you worsening pain, you began bleeding through more than 2 pads per hour for more than 3 hours, you pass out, have persistent vomiting, develop a fever greater than 100.4F, or any other symptoms that are concerning to you. Referrals: ALMAZ AGARWAL MD [ACTIVE STAFF] - Follow up as needed HERBERT CLIFTON MD [EMERITUS] - Follow up as needed CARMELITA RODRIGUEZ MD [EMERITUS] - Follow up as needed
[2019-02-01 00:34] VITALS: BP 122/58
[2019-02-01 14:56] LABS: PATH REVIEW PATHOLOGIST REVIEWED
== END 2019-02-01 00:36 | disposition home or self-care (01) ==
LOC: ER 21:20
DX: N93.9 Abnormal uterine and vaginal bleeding, unspecified (principal); R10.9 Unspecified abdominal pain; M54.9 Dorsalgia, unspecified; R51 Headache; Z87.891 Personal history of nicotine dependence
CPT/HCPCS: 36415; 76830; 80053; 81001; 81025; 85025; 93976; 99284